=== PATIENT | male | born 1990 | race Caucasian/White ===

== ENCOUNTER 2019-01-13 09:33 | Emergency (ER) | payer BC ==
[~2019-01-13] VITALS: Ht 167.6 cm; Wt 63.5 kg
--- NOTE | 2019-01-13 09:44 | NUR ---
pt ambulated with steady gait. A&Ox4. c/o Right sided chest pain sudden onset right now. Very faint per pt but still persistent at this time 4/10 on the pain scale. No neural deficits noted. Speech clear and able to follow commands. Breathing even and unlabored. No SOB noted. Denies any / GI distress. Fall precautions implemented. Bed low, siderails up x2, call light within reach
--- NOTE | 2019-01-13 10:46 | NUR ---
Patient discharged to home in stable conditon. Written and verbal after care instructions given. Patient verbalizes understanding of instructions. pt ambulated in a steady gait
[2019-01-13 10:47] VITALS: BP 110/67
== END 2019-01-13 10:44 | disposition home or self-care (01) ==
LOC: ER 09:33
DX: R07.89 Other chest pain (principal)
CPT/HCPCS: 36415; 70030-TC; 71045; 93005; A4663

== ENCOUNTER 2019-11-10 16:37 | Emergency (ER) | payer BC ==
[~2019-11-10] VITALS: Ht 175.3 cm; Wt 68.0 kg
--- NOTE | 2019-11-10 17:00 | NUR ---
Dr Novak at the bedside for MSE.
[2019-11-10] MEDS ORDERED: DOCUSATE SODIUM 100 MG/10 ML LIQUID UDC ONE (17:08)
[2019-11-10] MEDS ORDERED: DOCUSATE SODIUM 100 MG/10 ML LIQUID UDC XX ONE (17:15)
--- NOTE | 2019-11-10 17:16 | NUR ---
Patient discharged to home in stable condition. Written and verbal after care instructions given. Patient verbalizes understanding of instructions. Stressed follow up or return to ER for worsening s/s.
[2019-11-10 17:17] VITALS: BP 123/75
== END 2019-11-10 17:18 | disposition home or self-care (01) ==
LOC: ER 16:40
DX: H61.23 Impacted cerumen, bilateral (principal)
CPT/HCPCS: A4663

== ENCOUNTER 2022-04-03 17:09 | Emergency (ER) | payer BC ==
[~2022-04-03] VITALS: Ht 175.3 cm; Wt 81.6 kg
--- NOTE | 2022-04-03 18:30 | NUR ---
Pt was not in the ER waiting room or outside ER.
== END 2022-04-03 18:40 | disposition left against medical advice (07) ==
LOC: ER 17:09
DX: Z53.21 Procedure and treatment not carried out due to patient leaving prior to being seen by health care provider (principal)